=== PATIENT | male | born 1980 ===

== ENCOUNTER 2018-06-19 04:01 | Emergency (ER) | payer SELFPAY ==
[2018-06-19 04:17] VITALS: RESP 18; TEMP 97.5
--- NOTE | 2018-06-19 04:40 | ED PDOC ---
Arrival/HPI - History of Present Illness Narrative History of Present Illness (Text): 06/19/18 04:42 38 year old male with a past medical history of (?)left inguinal hernia who presents to the hospital reporting some scrotal discomfort for the past three days. Patient states its throbbing in nature with radiation to the abdomen. Patient denies any accident or trauma to the area. Patient states in the past getting a ultrasound of the testes, however didn't follow up with results. Patient denies any penile discharge, lesions, fevers, chills, nausea, vomiting, headaches, dizziness, syncopal episodes, or any other complaints. Medical history:?left inguinal hernia (unconfirmed) Medications: Denies Surgical history ;denies Allergies: Denies Social history: Occasional alcohol and marijuana Time/Duration: < week Symptom Onset: Gradual Symptom Course: Unchanged Severity Level: 6 Activities at Onset: Rest Context: Sitting Past Medical History - Provider Review Nursing Documentation Reviewed: Yes - Infectious Disease Hx of Infectious Diseases: None - Psychiatric Hx Substance Use: No Family/Social History - Physician Review Nursing Documentation Reviewed: Yes Family/Social History: No Known Family HX Smoking Status: Never Smoked Hx Alcohol Use: Yes Frequency of alcohol use: Socially Hx Substance Use: No Allergies/Home Meds Allergies/Adverse Reactions: Allergies No Known Allergies Allergy (Verified 06/19/18 04:09) Home Medications: Home Meds Medication Instructions Recorded Confirmed No Known Home Med 06/19/18 06/19/18 Review of Systems - Physician Review All systems were reviewed & negative as marked: Yes - Review of Systems Constitutional: Normal. absent: Fatigue, Weight Change Eyes: Normal. absent: Vision Changes, Photophobia ENT: Normal. absent: Hearing Changes, Rhinorrhea Respiratory: Normal. absent: SOB, Cough, Sputum Cardiovascular: Normal. absent: Chest Pain, Syncope Gastrointestinal: Normal. absent: Abdominal Pain, Vomiting, Food Intolerance Genitourinary Male: Other (Scrotal discomfort.). absent: Dysuria, Frequency, Hematuria Skin: Normal. absent: Rash, Other Neurological: Normal. absent: Headache, Dizziness Endocrine: Normal. absent: Diaphoresis, Polyuria, Polydipsia Hemo/Lymphatic: Normal. absent: Adenopathy, Easy Bleeding Psychiatric: Normal. absent: Anxiety, Depression Physical Exam Vital Signs Reviewed: Yes Vital Signs Temp Pulse Resp BP Pulse Ox 06/19/18 04:16 97.5 F L 119 H 18 167/95 H 97 Temperature: Afebrile Blood Pressure: Hypertensive Pulse: Tachycardic Respiratory Rate: Normal Appearance: Positive for: Well-Appearing, Non-Toxic, Comfortable Pain Distress: Moderate Mental Status: Positive for: Alert and Oriented X 3. No: Confused - Systems Exam Head: Present: Atraumatic, Normocephalic. No: Abrasion Pupils: Present: PERRL. No: Sluggish Extroacular Muscles: Present: EOMI. No: Gaze Palsy Conjunctiva: Present: Normal Mouth: Present: Moist Mucous Membranes. No: Dry, Normal Teeth Neck: Present: Normal Range of Motion. No: Meningeal Signs, JVD, Lymphadenopathy Respiratory/Chest: Present: Clear to Auscultation, Good Air Exchange. No: Wheezes, Tachypneic Cardiovascular: Present: Regular Rate and Rhythm, Normal S1, S2. No: Tachycardic Abdomen: Present: Normal Bowel Sounds Upper Extremity: Present: Normal Inspection, Edema. No: Erythema, Capillary Refill < 2s Lower Extremity: Present: Normal Inspection. No: Normal ROM, Temperature Abnormalties Neurological: Present: CN II-XII Intact, Speech Normal. No: Normal Sensory Function, Norm Deep Tendon Reflexes Skin: Present: Dry, Normal Color. No: Hot, Cold Psychiatric: Present: Alert, Oriented x 3, Normal Insight Medical Decision Making ED Course and Treatment: 06/19/18 04:47 38 year old male presents to the e.d. for scrotal discomfort. Plan: -Scrotal u/s -Tylenol -U/A 06/19/18 05:22 Patient signed out AMA without signing or having u/s taken. - RAD Interpretation Radiology Orders: 06/19/18 04:34 TESTES DUPLEX COMPLETE [US] Stat - Medication Orders Current Medication Orders: Discontinued Medications Ketorolac Tromethamine (Toradol) 60 mg IM STAT STA Stop: 06/19/18 04:29 Disposition/Present on Arrival - Present on Arrival Any Indicators Present on Arrival: No History of DVT/PE: No History of Uncontrolled Diabetes: No Urinary Catheter: No History of Decub. Ulcer: No History Surgical Site Infection Following: None - Disposition Have Diagnosis and Disposition been Completed?: No Diagnosis: Scrotal pain Disposition: AGAINST MEDICAL ADVICE Disposition Time: 05:22 Condition: UNKNOWN Forms: Focus (Japanese)
[2018-06-19 05:30] VITALS: BP 145/73; PULSE 98; O2SAT 100
[2018-06-19] MEDS ORDERED: Lidocaine 1% Inj (20ml) ONE (09:05)
== END 2018-06-19 05:21 | disposition left against medical advice (07) ==
LOC: ED 04:01
DX: N50.82 Scrotal pain (principal)